=== PATIENT | female | born 1995 | race Two or more races ===

== ENCOUNTER → 2022-06-13 | Outpatient (CLI) | payer OTHER ==
[~2022-06-13] MED LIST: PRENATAL TABLE1 EAC1
== END | disposition home or self-care (01) ==
LOC: OBS/DEL 17:54
PROVIDERS: ATTEND Obstetrics & Gynecology
DX: O26.893 Other specified pregnancy related conditions, third trimester (principal); D64.89 Other specified anemias; M79.604 Pain in right leg; Z3A.35 35 weeks gestation of pregnancy